=== PATIENT | female | born 1975 | race Caucasian/White ===

== ENCOUNTER 2016-11-19 12:00 | Emergency (ER) | payer OTHER ==
[2016-11-19] MEDS ORDERED: ONDANSETRON ODT 4 MG TABLET TL STA (13:11)
[2016-11-19] MEDS ORDERED: MECLIZINE 12.5 MG TABLET PO STA (13:11)
[2016-11-19] MEDS ORDERED: MECLIZINE 12.5 MG TABLET PO ONE ×2 (13:19→13:24)
[2016-11-19] MEDS ORDERED: ONDANSETRON ODT 4 MG TABLET ONE (13:20)
[2016-11-19] MEDS ORDERED: SODIUM CHLORIDE 0.9% 1,000 ML IV ONE (14:18)
[2016-11-19] MEDS ORDERED: PROMETHAZINE INJ 25 MG in SODIUM CHLORIDE 0.9% 50 ML IV STA (14:18)
[2016-11-19] MEDS ORDERED: PROMETHAZINE 25 MG/1 ML VIAL ONE (14:25)
== END 2016-11-19 16:17 | disposition home or self-care (01) ==
DX: R42 Dizziness and giddiness (principal); R11.2 Nausea with vomiting, unspecified; I44.7 Left bundle-branch block, unspecified; I10 Essential (primary) hypertension; Z87.891 Personal history of nicotine dependence
CPT/HCPCS: 36415; 80053; 81003; 83690; 85025; 93005; 93010; 96374; 99283; 99284; A9270; Q0162